=== PATIENT | female | born 1970 | race Caucasian/White ===

== ENCOUNTER 2020-08-11 12:26 | Emergency (ER) | payer BC ==
[~2020-08-11] VITALS: Ht 177.8 cm; Wt 95.5 kg
[2020-08-11 12:32] VITALS: BP 137/83; Ht 177.8 cm; Wt 95.5 kg
[2020-08-11] MEDS ORDERED: ADDERALL 30 MG30 MG PO (12:36)
[2020-08-11] MEDS ORDERED: LEVO-T100 MCG (12:36)
[2020-08-11] MEDS ORDERED: EFFEXOR25 MG (12:38)
[2020-08-11] MEDS ORDERED: CYCLOBENZAPRINE10 MG PO (15:28)
[2020-08-11] MEDS ORDERED: ACETAMINOPHEN500 M1 PO (15:28)
[2020-08-11] MEDS ORDERED: IBUPROFEN800 MG PO (15:28)
== END 2020-08-11 15:40 | disposition home or self-care (01) ==
LOC: D.ER 12:26
DX: M25.511 Pain in right shoulder (principal); T14.8XXA Other injury of unspecified body region, initial encounter; M79.10 Myalgia, unspecified site; Y04.8XXA Assault by other bodily force, initial encounter; Y93.9 Activity, unspecified; Y92.9 Unspecified place or not applicable